=== PATIENT | male | born 1955 | race Caucasian/White ===

== ENCOUNTER 2017-09-03 09:16 | Day surgery (SDC) | payer OTHER ==
[~2017-09-03] VITALS: Ht 162.6 cm; Wt 71.6 kg
[2017-09-03] MEDS ORDERED: METF1000 PO (09:52)
[2017-09-03] MEDS ORDERED: ATOR10TA65 PO (09:52)
[2017-09-03] MEDS ORDERED: ASPI-664 PO (09:53)
[2017-09-03] MEDS ORDERED: GLIP5TAB13 PO (09:53)
[2017-09-03] MEDS ORDERED: LISI10TA2 PO (09:54)
[2017-09-03] MEDS ORDERED: SITA100T8 PO (09:54)
[2017-09-03 10:14] VITALS: Ht 162.6 cm; Wt 71.6 kg
[2017-09-03 10:16] VITALS: BP 129/63; PULSE 72; RESP 16
[2017-09-03] MEDS ORDERED: BUPIVACAINE 0.5% (SDV) 30 ML INJ ONE (11:01)
[2017-09-03] MEDS ORDERED: LIDOCAINE 1% (MPF) 30 ML INJ ONE (11:01)
--- NOTE | 2017-09-03 11:01 | HPN ---
Date/Time of Note Date/Time of Note DATE: 09/03/17 TIME: 11:01 Interval H&P Admission Note Pt. seen H&P reviewed: No system changes KIRAN KESSLER MD Sep 03, 2017 11:01
[2017-09-03] MEDS ORDERED: CEFAZOLIN 1 GM INJ ONE (11:15)
[2017-09-03] MEDS ORDERED: PROPOFOL 20 ML ONE (11:15)
[2017-09-03] MEDS ORDERED: MIDAZOLAM 1 MG/ML 2 ML INJ ONE (11:16)
[2017-09-03] MEDS ORDERED: BACITRACIN/POLYMYXIN 28.35 GM OINT TOP ONE (11:39)
[2017-09-03] MEDS ORDERED: KETOROLAC 30 MG INJ ONE (11:45)
[2017-09-03] MEDS ORDERED: ONDANSETRON 4 MG INJ ONE (11:45)
[2017-09-03] MEDS ORDERED: METOCLOPRAMIDE 10 MG INJ ONE (11:45)
[2017-09-03 11:52] VITALS: BP 113/71; PULSE 66; RESP 14
[2017-09-03 11:58] VITALS: BP 119/75; PULSE 66; RESP 16
[2017-09-03] MEDS ORDERED: MEPERIDINE 25 MG INJ IV PRN (12:00)
[2017-09-03] MEDS ORDERED: OXYCODONE/ACETAMINOPHEN (5/325) TAB PO PRN (12:00)
[2017-09-03] MEDS ORDERED: ONDANSETRON 4 MG INJ IV PRN (12:00)
[2017-09-03] MEDS ORDERED: hydrALAzine 20 MG INJ IV PRN (12:00)
[2017-09-03] MEDS ORDERED: morphine (1 MG/ML) 10ML SYRINGE IV PRN ×3 (12:00)
[2017-09-03] MEDS ORDERED: LABETALOL HCL 20MG INJ IV PRN (12:00)
[2017-09-03] MEDS ORDERED: DIPHENHYDRAMINE 50 MG INJ IV PRN (12:00)
[2017-09-03] MEDS ORDERED: METOCLOPRAMIDE 10 MG INJ IV PRN (12:00)
[2017-09-03] MEDS ORDERED: FENTAnyl 50 MCG/ML VIAL IV PRN ×3 (12:00)
[2017-09-03] MEDS ORDERED: EPHEDrine SULFATE 50 MG/5 ML SYG IV PRN (12:00)
--- NOTE | 2017-09-03 12:01 | SIPON ---
Date/Time of Note Date/Time of Note DATE: 09/03/17 TIME: 11:59 Operative Report Preoperative Diagnosis Stenosing Tenosynovitis Left Long Finger Postoperative Diagnosis Same Operation/Procedure Performed Tenovaginotomy Left Long Finger Surgeon see signature line resident assistant cna NA Anesthesia: MAC Estimated blood loss: none Transfusion Required none Specimen None Grafts/Implants none Complications none KIRAN KESSLER MD Sep 03, 2017 12:01
[2017-09-03 12:03] VITALS: BP 117/74; PULSE 66; RESP 16
--- NOTE | 2017-09-03 12:25 | OPR ---
DATE OF OPERATION: 09/03/2017 PREOPERATIVE DIAGNOSIS: Stenosing tenosynovitis, left long finger. POSTOPERATIVE DIAGNOSIS: Stenosing tenosynovitis, left long finger. OPERATION: Tenovaginotomy, left long finger. PROCEDURE: With the patient supine on the operating table, monitored anesthesia care was provided. The left upper extremity from below the tourniquet was prepared and draped in a sterile fashion. T he Esmarch bandage was applied and the tourniquet inflated to 250 mmHg. A curved incision was made overlying the A1 shabbir of the left long finger. This was deepened. Care was taken to avoid damagi ng the neurovascular bundles. The A1 shabbir was isolated. The A1 shabbir was divided longitudinally . The patient could then flex and extend his long finger without any triggering. The wound was irr igated with saline. Sutures of 5-0 Ethilon were used to approximate the skin. A voluminous sterile dressing was applied. The patient tolerated the procedure and left in satisfactory condition. Dictated By: KIRAN HENLEY/INOCENTE Conf#: [id number] DID#: [id number]
[2017-09-03 13:14] VITALS: BP 126/72; PULSE 69; RESP 16
== END 2017-09-03 13:19 | disposition home or self-care (01) ==
LOC: SDS 09:16
PROVIDERS: ATTEND Orthopaedic Surgery Hand Surgery
DX: M65.842 Other synovitis and tenosynovitis, left hand (principal); E11.9 Type 2 diabetes mellitus without complications; I10 Essential (primary) hypertension; E78.5 Hyperlipidemia, unspecified
CPT/HCPCS: 26455; 82962; J2250; Z7512; Z7610; J0690; J1885; J2405; J2765